=== PATIENT | male | born 1960 | race Hispanic/Latino ===

== ENCOUNTER 2019-08-01 21:01 | Emergency (ER) | payer MEDICAID ==
[2019-08-01] MEDS ORDERED: SODIUM CHLORIDE 0.9% 1000ML 1,000 ML IV ONE (21:33)
[2019-08-01 21:42] LABS: BASOPHILS % (AUTO) 0.4 % (0.0-5.0); EOSINOPHILS % (AUTO) 0.9 % (0.0-8.0); HEMATOCRIT 43.3 % (42-54); LYMPHOCYTES % (AUTO) 33.3 % (21.0-51.0); MEAN CORPUSCULAR HEMOGLOBIN 31.3 pg (27.0-33.0); MEAN CORPUSCULAR HGB CONC 35.6 g/dL (32.0-36.0); NEUTROPHILS % (AUTO) 54.2 % (40.0-77.0); PLATELET COUNT (AUTO) 258 K/uL (130-400); RED BLOOD CELL COUNT(AUTO) 4.92 MIL/uL (4.50-6.20); RED CELL DISTRIBUTION WIDTH 11.4 % (11.0-15.5); WHITE BLOOD COUNT (AUTO) 4.5 K/uL (4.8-10.8)
[2019-08-01 22:06] LABS: CREATININE 0.9 mg/dL (0.5-1.5); POTASSIUM 3.8 mmol/L (3.5-5.1)
[2019-08-01 22:11] LABS: PHENYTOIN (DILANTIN) 6.3 mcg/mL (10.0-20.0)
== END 2019-08-01 23:04 | disposition home or self-care (01) ==
LOC: EDH 21:01
DX: G40.509 Epileptic seizures related to external causes, not intractable, without status epilepticus (principal); R89.2 Abnormal level of other drugs, medicaments and biological substances in specimens from other organs, systems and tissues; I10 Essential (primary) hypertension; F41.9 Anxiety disorder, unspecified
CPT/HCPCS: 36415; 80048; 80177; 80184; 80185; 85025; 99283; J7030

== ENCOUNTER 2020-05-27 15:57 | Emergency (ER) | payer MEDICAID ==
[2020-05-27] MEDS ORDERED: LEVETIRACETAM 500 MG TABLET PO ONE (16:20)
[2020-05-27] MEDS ORDERED: LORAZEPAM 1 MG TABLET ONE (16:21)
== END 2020-05-27 16:32 | disposition home or self-care (01) ==
LOC: EDH 15:57
DX: G40.909 Epilepsy, unspecified, not intractable, without status epilepticus (principal); I10 Essential (primary) hypertension; F41.9 Anxiety disorder, unspecified

== ENCOUNTER 2022-07-15 13:55 | Emergency (ER) | payer MEDICAID ==
[~2022-07-15] VITALS: Ht 165.1 cm; Wt 86.2 kg
[2022-07-15 14:35] LABS: BASOPHILS % (AUTO) 0.7 % (0.0-5.0); EOSINOPHILS % (AUTO) 5.5 % (0.0-8.0); HEMATOCRIT 41.5 % (42-54); MEAN CORPUSCULAR HEMOGLOBIN 31.6 pg (27.0-33.0); MEAN CORPUSCULAR HGB CONC 35.7 g/dL (32.0-36.0); MEAN CORPUSCULAR VOLUME 88.7 fL (79-99); MONOCYTES % (AUTO) 9.8 % (3.0-13.0); NEUTROPHILS % (AUTO) 45.8 % (40.0-77.0); PLATELET COUNT (AUTO) 209 K/uL (130-400); RED BLOOD CELL COUNT(AUTO) 4.68 MIL/uL (4.50-6.20); RED CELL DISTRIBUTION WIDTH 11.8 % (11.0-15.5); WHITE BLOOD COUNT (AUTO) 4.4 K/uL (4.8-10.8)
[2022-07-15 14:46] LABS: INR 0.98 (0.85-1.15); PROTHROMBIN TIME 10.7 SEC (9.6-11.6)
[2022-07-15 14:47] LABS: PARTIAL THROMBOPLASTIN TIME 27.4 SEC (26.3-35.5)
[2022-07-15 14:49] LABS: CREATININE 0.8 mg/dL (0.5-1.5); POTASSIUM 3.6 mmol/L (3.5-5.1)
[2022-07-15 14:53] LABS: ALBUMIN 4.1 g/dL (3.5-5.0); TOTAL PROTEIN, SERUM 7.6 g/dL (6.0-8.3)
[2022-07-15 14:54] LABS: APPEARANCE,URINE CLEAR (CLEAR); BILIRUBIN,URINE NEGATIVE (NEGATIVE); COLOR,URINE YELLOW (YELLOW); GLUCOSE, URINE (UA) NEGATIVE (NEGATIVE); KETONES,URINE 5 mg/dL (NEGATIVE); LEUKOCYTE ESTERASE ,URINE NEGATIVE Leu/uL (NEGATIVE); NITRATE,URINE NEGATIVE (NEGATIVE); OCCULT BLOOD,URINE SMALL (NEGATIVE); PROTEIN,URINE 20 mg/dL (NEGATIVE)
[2022-07-15 14:58] LABS: BACTERIA,URINE RARE /HPF (None Seen); MUCUS,URINE MANY LPF (None Seen); WBC,URINE 0-1 /HPF (0-1)
[2022-07-15 15:01] LABS: B-TYPE NATRIURETIC PEPTIDE < 5 pg/mL (0-100)
[2022-07-15] MEDS ORDERED: PRED20TA3 PO (17:15)
[2022-07-15 18:08] VITALS: BP 133/70
== END 2022-07-15 18:13 | disposition home or self-care (01) ==
LOC: EDH 13:55
DX: G51.0 Bell's palsy (principal); I10 Essential (primary) hypertension; Z86.79 Personal history of other diseases of the circulatory system; Z98.890 Other specified postprocedural states
CPT/HCPCS: 36415; 70450; 71045; 80053; 81001; 82550; 82948; 83735; 83880; 84484; 85025; 85610; 85730; 93005

== ENCOUNTER 2023-01-13 14:15 | Observation (INO) | payer MEDICAID ==
[~2023-01-13] VITALS: Ht 165.1 cm; Wt 80.7 kg
[~2023-01-13 14:15] MED LIST: PRED20TA3 PO
[2023-01-13 14:42] LABS: BASOPHILS # (AUTO) 0.02 K/uL (0.00-0.20); BASOPHILS % (AUTO) 0.5 % (0.0-5.0); EOSINOPHILS # (AUTO) 0.11 K/uL (0.00-0.70); EOSINOPHILS % (AUTO) 2.6 % (0.0-8.0); HEMATOCRIT 42.1 % (42-54); IMMATURE GRANULOCYTE ABSOLUTE 0.02 K/uL (0-1); LYMPHOCYTES # (AUTO) 1.1 K/uL (1.0-4.8); LYMPHOCYTES % (AUTO) 26.7 % (21.0-51.0); MEAN CORPUSCULAR HEMOGLOBIN 32.5 pg (27.0-33.0); MEAN CORPUSCULAR HGB CONC 37.1 g/dL (32.0-36.0); MEAN CORPUSCULAR VOLUME 87.7 fL (79-99); MONOCYTES # (AUTO) 0.4 K/uL (0.1-1.0); MONOCYTES % (AUTO) 10.3 % (3.0-13.0); NEUTROPHILS # (AUTO) 2.5 K/uL (1.8-7.7); NEUTROPHILS % (AUTO) 59.4 % (40.0-77.0); PLATELET COUNT (AUTO) 247 K/uL (130-400); RED CELL DISTRIBUTION WIDTH 11.6 % (11.0-15.5); WHITE BLOOD COUNT (AUTO) 4.3 K/uL (4.8-10.8)
[2023-01-13 15:03] LABS: CREATININE 0.7 mg/dL (0.5-1.5); POTASSIUM 3.8 mmol/L (3.5-5.1)
[2023-01-13 15:07] LABS: BILIRUBIN,TOTAL 0.4 mg/dL (0.2-1.0); TOTAL PROTEIN, SERUM 7.5 g/dL (6.0-8.3)
[2023-01-13] MEDS ORDERED: NITROGLYCERIN 0.4 MG SL TAB SL PRN (17:30)
[2023-01-13] MEDS ORDERED: ACETAMINOPHEN 500 MG TABLET PO PRN (17:30)
[2023-01-13] MEDS ORDERED: CITA20SO2 PO (17:40)
[2023-01-13] MEDS ORDERED: LOSA25TA41 PO (17:40)
[2023-01-13] MEDS ORDERED: PHEN125O3 PO (17:40)
[2023-01-13] MEDS ORDERED: PHEN97.29 PO (17:40)
[2023-01-13] MEDS ORDERED: LEVE250T2 PO ×2 (17:40→18:12)
[2023-01-13] MEDS: MORPHINE 2 MG SYG IVP PRN (17:43)
[2023-01-13 17:45] LABS: THYROID STIMULATING HORMONE 0.87 uIU/mL (0.36-3.74)
[2023-01-13] MEDS ORDERED: PHEN50TA4 PO (18:12)
[2023-01-13 18:45] VITALS: BP 132/104; PULSE 75; RESP 18
[2023-01-13 19:15] VITALS: BP 140/90; PULSE 71; RESP 22
[2023-01-13] MEDS: FAMOTIDINE 20MG VIAL IV SCH (20:16)
[2023-01-13] MEDS: LEVETIRACETAM 250 MG TABLET PO SCH (20:17)
[2023-01-13] MEDS: PHENYTOIN SODIUM 100 MG ERCAP PO SCH (20:17)
[2023-01-13] MEDS ORDERED: PHENYTOIN 200 MG PO SCH (21:00)
[2023-01-13] MEDS ORDERED: PHENOBARBITAL 97.2 MG PO SCH (22:00)
[2023-01-13] MEDS ORDERED: HOME MEDICATION 1 EACH PO SCH ×2 (22:00→22:40)
[2023-01-13] MEDS: PHENOBARBITAL 97.2 MG PO SCH (22:40)
[2023-01-13 22:41] VITALS: O2SAT 98
[2023-01-14] VITALS (7 sets, daily range): BP systolic 117–148; BP diastolic 65–86; PULSE 67–82; RESP 18–22; O2SAT 96
[2023-01-14] MEDS: MORPHINE 2 MG SYG IVP PRN (01:12)
[2023-01-14 08:27] LABS: BASOPHILS # (AUTO) 0.02 K/uL (0.00-0.20); BASOPHILS % (AUTO) 0.5 % (0.0-5.0); EOSINOPHILS # (AUTO) 0.15 K/uL (0.00-0.70); EOSINOPHILS % (AUTO) 3.8 % (0.0-8.0); HEMATOCRIT 42.9 % (42-54); IMMATURE GRANULOCYTE ABSOLUTE 0.01 K/uL (0-1); LYMPHOCYTES # (AUTO) 1.3 K/uL (1.0-4.8); LYMPHOCYTES % (AUTO) 33.6 % (21.0-51.0); MEAN CORPUSCULAR HEMOGLOBIN 32.7 pg (27.0-33.0); MEAN CORPUSCULAR HGB CONC 36.8 g/dL (32.0-36.0); MEAN CORPUSCULAR VOLUME 88.8 fL (79-99); MONOCYTES # (AUTO) 0.4 K/uL (0.1-1.0); MONOCYTES % (AUTO) 9.6 % (3.0-13.0); NEUTROPHILS # (AUTO) 2.1 K/uL (1.8-7.7); NEUTROPHILS % (AUTO) 52.2 % (40.0-77.0); PLATELET COUNT (AUTO) 219 K/uL (130-400); RED BLOOD CELL COUNT(AUTO) 4.83 MIL/uL (4.50-6.20); RED CELL DISTRIBUTION WIDTH 11.5 % (11.0-15.5)
[2023-01-14 08:35] LABS: CREATININE 0.7 mg/dL (0.5-1.5); POTASSIUM 3.7 mmol/L (3.5-5.1)
[2023-01-14] MEDS ORDERED: KCL 20 MEQ ERTAB PO ONE (08:41)
[2023-01-14] MEDS: PHENYTOIN SODIUM 100 MG ERCAP PO SCH ×2 (08:43→20:52)
[2023-01-14] MEDS: FAMOTIDINE 20MG VIAL IV SCH ×2 (08:43→20:53)
[2023-01-14] MEDS: LOSARTAN 25 MG TABLET PO SCH (08:43)
[2023-01-14] MEDS: LEVETIRACETAM 250 MG TABLET PO SCH ×2 (08:43→20:52)
[2023-01-14] MEDS: CITALOPRAM 20 MG TABLET PO SCH (08:43)
[2023-01-14] MEDS ORDERED: CITALOPRAM HYDROBROMIDE 20 MG PO SCH (09:00)
[2023-01-14] MEDS ORDERED: PHENOBARBITAL 97.2 MG PO SCH ×2 (09:00→21:00)
[2023-01-14] MEDS ORDERED: ASPIRIN 81MG CHEW TAB PO SCH (09:00)
[2023-01-14] MEDS: NAPROXEN 250 MG TAB PO SCH ×2 (16:07→20:52)
[2023-01-14] MEDS: PHENOBARBITAL 97.2 MG PO SCH (20:54)
[2023-01-15 00:06] VITALS: BP 142/83; PULSE 67; RESP 20
[2023-01-15 04:08] VITALS: BP 121/76; PULSE 74; RESP 20
[2023-01-15 04:55] LABS: HEMATOCRIT 44.3 % (42-54); MEAN CORPUSCULAR HEMOGLOBIN 32.7 pg (27.0-33.0); MEAN CORPUSCULAR HGB CONC 36.8 g/dL (32.0-36.0); RED BLOOD CELL COUNT(AUTO) 4.98 MIL/uL (4.50-6.20); RED CELL DISTRIBUTION WIDTH 11.4 % (11.0-15.5); WHITE BLOOD COUNT (AUTO) 4.9 K/uL (4.8-10.8)
[2023-01-15 05:15] LABS: ALBUMIN 3.8 g/dL (3.5-5.0); BILIRUBIN,TOTAL 0.4 mg/dL (0.2-1.0); CREATININE 0.7 mg/dL (0.5-1.5); MAGNESIUM 1.9 mg/dL (1.80-2.40); POTASSIUM 3.9 mmol/L (3.5-5.1); TOTAL PROTEIN, SERUM 7.2 g/dL (6.0-8.3)
[2023-01-15 07:28] VITALS: BP 138/81; PULSE 66; RESP 18
[2023-01-15 08:05] VITALS: O2SAT 97
[2023-01-15] MEDS: CITALOPRAM 20 MG TABLET PO SCH (08:49)
[2023-01-15] MEDS: LEVETIRACETAM 250 MG TABLET PO SCH (08:49)
[2023-01-15] MEDS: PHENYTOIN SODIUM 100 MG ERCAP PO SCH (08:49)
[2023-01-15] MEDS: FAMOTIDINE 20MG VIAL IV SCH (08:49)
[2023-01-15] MEDS: LOSARTAN 25 MG TABLET PO SCH (08:49)
[2023-01-15] MEDS: NAPROXEN 250 MG TAB PO SCH (08:49)
[2023-01-15 11:29] VITALS: BP 132/84; PULSE 72; RESP 18
== END 2023-01-15 13:00 | disposition home or self-care (01) ==
LOC: EDH 14:15 → EDHIP 14:16 → INTOOBSV 14:16 → 2AH 18:51
PROVIDERS: ADMIT Internal Medicine; ATTEND Internal Medicine
DX: R07.89 Other chest pain (principal); R20.0 Anesthesia of skin; I10 Essential (primary) hypertension; G40.909 Epilepsy, unspecified, not intractable, without status epilepticus; F32.A Depression, unspecified; F41.8 Other specified anxiety disorders; Z86.79 Personal history of other diseases of the circulatory system; Z79.899 Other long term (current) drug therapy
CPT/HCPCS: 96374; 96375; 99285 ×2; 83036; 84443; 82550; 84484 ×3; 80053 ×2; 85025 ×2; 36415 ×3; 71045; 70450; 93005; 96376 ×2; 80048; 93306; 93356; 83735; 85027; S0028 ×4; J2270 ×2; G0378 ×20; J3490

== ENCOUNTER 2023-06-01 04:29 | Emergency (ER) | payer MEDICAID ==
[~2023-06-01] VITALS: Ht 165.1 cm; Wt 83.9 kg
[~2023-06-01 04:29] MED LIST changes: +CITA20SO2 PO; +LEVE250T2 PO; +LOSA25TA41 PO; +PHEN50TA4 PO; +PHEN97.29 PO
[2023-06-01] MEDS: DIAZEPAM 2 MG TAB PO ONE (05:54)
[2023-06-01 06:00] LABS: BASOPHILS # (AUTO) 0.03 K/uL (0.00-0.20); BASOPHILS % (AUTO) 0.8 % (0.0-5.0); EOSINOPHILS # (AUTO) 0.12 K/uL (0.00-0.70); EOSINOPHILS % (AUTO) 3.3 % (0.0-8.0); HEMATOCRIT 41.2 % (42-54); IMMATURE GRANULOCYTE ABSOLUTE 0.01 K/uL (0-1); LYMPHOCYTES # (AUTO) 1.4 K/uL (1.0-4.8); LYMPHOCYTES % (AUTO) 38.4 % (21.0-51.0); MEAN CORPUSCULAR HEMOGLOBIN 32.8 pg (27.0-33.0); MEAN CORPUSCULAR HGB CONC 36.7 g/dL (32.0-36.0); MEAN CORPUSCULAR VOLUME 89.4 fL (79-99); MONOCYTES # (AUTO) 0.5 K/uL (0.1-1.0); MONOCYTES % (AUTO) 12.5 % (3.0-13.0); NEUTROPHILS # (AUTO) 1.6 K/uL (1.8-7.7); NEUTROPHILS % (AUTO) 44.7 % (40.0-77.0); PLATELET COUNT (AUTO) 198 K/uL (130-400); RED BLOOD CELL COUNT(AUTO) 4.61 MIL/uL (4.50-6.20); RED CELL DISTRIBUTION WIDTH 11.6 % (11.0-15.5); WHITE BLOOD COUNT (AUTO) 3.7 K/uL (4.8-10.8)
[2023-06-01 06:24] LABS: CREATININE 0.7 mg/dL (0.5-1.3); POTASSIUM 3.3 mmol/L (3.5-5.1)
[2023-06-01 06:29] LABS: ALBUMIN 3.5 g/dL (3.5-5.0); BILIRUBIN,TOTAL 0.2 mg/dL (0.2-1.0); PHENYTOIN (DILANTIN) 9.3 mcg/mL (10.0-20.0); TOTAL PROTEIN, SERUM 6.8 g/dL (6.0-8.3)
[2023-06-01 06:40] VITALS: BP 129/74; PULSE 62; RESP 14; O2SAT 98
[2023-06-01 06:49] LABS: APPEARANCE,URINE CLEAR (CLEAR); BILIRUBIN,URINE NEGATIVE (NEGATIVE); COLOR,URINE COLORLESS (YELLOW); GLUCOSE, URINE (UA) NEGATIVE (NEGATIVE); KETONES,URINE NEGATIVE (NEGATIVE); LEUKOCYTE ESTERASE ,URINE NEGATIVE Leu/uL (NEGATIVE); NITRATE,URINE NEGATIVE (NEGATIVE); OCCULT BLOOD,URINE NEGATIVE (NEGATIVE); PROTEIN,URINE NEGATIVE (NEGATIVE); UROBILINOGEN,URINE 0.2 mg/dL (0.2-1.0)
[2023-06-01 06:51] LABS: AMPHET/METH SCREEN,URINE NEGATIVE (NEGATIVE); BARBITURATE SCREEN, URINE POSITIVE (NEGATIVE); BENZODIAZEPINES SCREEN,URINE NEGATIVE (NEGATIVE); CANNABINOID SCREEN,URINE NEGATIVE (NEGATIVE); COCAINE SCREEN,URINE NEGATIVE (NEGATIVE); OPIATE SCREEN,URINE NEGATIVE (NEGATIVE); PHENCYCLIDINE SCREEN,URINE NEGATIVE (NEGATIVE)
[2023-06-01] MEDS ORDERED: CITA20TA17 PO (06:57)
[2023-06-01 07:08] LABS: ADD UA MICROSCOPIC NO
== END 2023-06-01 07:12 | disposition home or self-care (01) ==
LOC: EDH 04:29
DX: G47.00 Insomnia, unspecified (principal); I10 Essential (primary) hypertension; Z79.899 Other long term (current) drug therapy; Z98.890 Other specified postprocedural states
CPT/HCPCS: 36415; 80053; 80184; 80185; 80305; 81003; 85025

== ENCOUNTER 2024-03-08 20:43 | Emergency (ER) | payer MEDICAID ==
[~2024-03-08] VITALS: Ht 165.1 cm; Wt 83.0 kg
[~2024-03-08 20:43] MED LIST changes: +CITA20TA17 PO
--- NOTE | 2024-03-08 21:03 | ERN ---
ED Note History of Present Illness Stated Complaint: SEIZURE SYMPTOMS Chief Complaint: Seizure Time Seen by MD: 20:59 Dictation: This 62-year-old gentleman with a history of a seizure disorder and hypertension presents in the emergency department with with complaints of" starts to feel like he might have a seizure." He states that a couple of days ago he missed a single dose of phenobarbital and is worried that his phenobarbital level might be low. He also ran out of his citalopram 20 mg and has been unable to get into see his doctor to get a refill. He states he has been compliant with the remainder of his seizure medications. He denies any recent fever, ENT symptoms, cough or congestion, chest pain, shortness of breath or GI symptoms. He frequently gets seizure aura's but has not had a seizure in a long time. His primary care physician Dr. Hyman usually renewed his antiepileptic drugs. He saw the neurologist many years ago and has not followed up with him as the doctor moved to [place]. He indicated that he has reported these aura symptoms that usually last for a little bit time and resolve. The patient takes Dilantin 200 mg twice daily Thursday through Thursday and 200 mg 3 times daily Thursday and Thursday. He takes phenobarbital 97.5 mg nightly. He takes Keppra 250 mg twice daily. He admits to being compliant compliant with all of these medications except the missed phenobarbital couple of doses in the past few days. During my evaluation his symptoms have completely resolved. The these symptoms of aura that he describes are mostly visual and feels funny in his body Temperature 98.1 pulse 98 respirations 20 blood pressure 171/90 with a pulse oximetry of 97% on room air He has a remote history of craniotomy for brain aneurysm and has had a seizure disorder since that time. Patient denies cigarettes alcohol and recreational drugs. He lives with his mother and his sister Allergies: Coded Allergies: No Known Drug Allergies (Verified Allergy, Unknown, 08/01/19) Home Meds Active Scripts Citalopram Hydrobromide (Celexa) 20 Mg Tablet, 20 MG PO DAILY, #30 TAB 0 Refills Prov:BUTCH WOOD MD 06/01/23 Prednisone (Prednisone) 20 Mg Tablet, 1 TAB PO AD for 16 Days, #56 TAB 0 Refills TAKE 1 TAB BY MOUTH 4 TIMES A DAY FOR 10 DAYS, THEN TAKE 1 TAB BY MOUTH 3 TIMES A DAY FOR 2 DAYS, THEN TAKE 1 TAB BY MOUTH 2 TIMES A DAY FOR 2 DAYS, THEN Take 1 tab by mouth once a day for 2 days then stop Prov:BUTCH WOOD MD 07/15/22 Reported Medications Levetiracetam (Levetiracetam) 250 Mg Tablet, 250 MG PO BID, TAB 01/13/23 Phenytoin (Phenytoin) 50 Mg Tab.chew, 200 MG PO BID, TAB.CHEW 01/13/23 Citalopram Hydrobromide (Citalopram HBr) 20 Mg/10 Ml Solution, 20 MG PO DAILY, ML 01/13/23 Phenobarbital (Phenobarbital) 97.2 Mg Tablet, 97.2 MG PO DAILY, TAB 01/13/23 Losartan Potassium (Losartan Potassium) 25 Mg Tablet, 25 MG PO DAILY, TAB 01/13/23 Past Medical History Past Medical History: Hypertension, Seizure Additional Past Medical Hx: HX OF ANEURYSM Surgical History: Other (Craniotomy for brain aneurysm), None Surgical History Other: BRAIN Social History: ETOH (Social), Lives with family RN Note Reviewed/Agreed w/PFSH: Yes Review of System Dictation Constitutional: Negative for fever,chills, and weight loss Eyes: Negative for injury, pain,redness, and discharge ENT: Negative for injury,pain or swelling Cardiovascular: Negative for chest pain, palpitations, and edema Respiratory: Negative for shortness of breath, cough, and wheezing, Abdomen/GI: Negative for abdominal pain, nausea, vomiting, diarrhea, and constipation Back: Negative for injury and pain : Negative for injury, bleeding and discharge MS/Extremity: Negative for injury and deformity Skin: Negative for rash, and discoloration Neuro: Negative for headache, weakness, numbness, tingling, and seizure . He does report feeling aura even though he has taken all his medications. He has had similar presentation in the past with a sense of seizure coming on Psych: Negative for suicide ideation, homicidal ideation, and hallucinations Reports poor sleep hygiene Initial Vital Sign VS Vital Signs Date Time Temp Pulse Resp B/P (MAP) Pulse Ox O2 Delivery O2 Flow Rate FiO2 03/08/24 20:48 98.1 98 20 171/90 97 Room Air Physical Exam Dictation General: awake, alert, NAD overweight male Head/Face: Normocephalic, atraumatic Eyes: PERRL, EOMI, vision at baseline ENT: oral cavity clear, TMs clear, no signs of infection Neck: Trachea midline, supple, no nuchal rigidity Cardiovascular: RRR, normal S1/S2, No MRGs, no JVD Respiratory: CTAB, no respiratory distress, No rales or wheezes Abdomen: Soft, non-tender, non-distended, normal bowel sounds, no guarding or rebound. Skin: Warm, dry, normal turgor, no rash MS/Extremity: Pulses equal, no cyanosis, neurovascular intact, FROM Neuro: COAx4, GCS 15, strength 5/5, CN 2-12 intact, normal cerebellar exam, normal gait, Psych: Normal behavior, mood, and affect normal Extremities-trace edema without any palpable cords, Homans sign is negative Results (Laboratory/Radiology) Laboratory/Radiology Laboratory Tests Test 03/08/24 22:27 03/08/24 22:50 White Blood Count 4.9 K/uL (4.8-10.8) Red Blood Count 4.90 MIL/uL (4.50-6.20) Hemoglobin 15.6 g/dL (14.0-18.0) Hematocrit 43.2 % (42-54) Mean Corpuscular Volume 88.2 fL (79-99) Mean Corpuscular Hemoglobin 31.8 pg (27.0-33.0) Mean Corpuscular Hemoglobin Concent 36.1 g/dL (32.0-36.0) H Red Cell Distribution Width 11.3 % (11.0-15.5) Platelet Count 231 K/uL (130-400) Mean Platelet Volume 8.8 fL (7.5-10.5) Immature Granulocyte % (Auto) 0.2 % (0-1) Neutrophils (%) (Auto) 61.1 % (40.0-77.0) Lymphocytes (%) (Auto) 24.9 % (21.0-51.0) Monocytes (%) (Auto) 10.8 % (3.0-13.0) Eosinophils (%) (Auto) 2.4 % (0.0-8.0) Basophils (%) (Auto) 0.6 % (0.0-5.0) Neutrophils # (Auto) 3.0 K/uL (1.8-7.7) Lymphocytes # (Auto) 1.2 K/uL (1.0-4.8) Monocytes # (Auto) 0.5 K/uL (0.1-1.0) Eosinophils # (Auto) 0.12 K/uL (0.00-0.70) Basophils # (Auto) 0.03 K/uL (0.00-0.20) Absolute Immature Granulocyte (auto 0.01 K/uL (0-1) Nucleated Red Blood Cells 0.0 % (0.0-0.19) Sodium Level 138 mmol/L (136-145) Potassium Level 4.1 mmol/L (3.5-5.1) Chloride Level 102 mmol/L (101-111) Carbon Dioxide Level 29 mmol/L (21-32) Blood Urea Nitrogen 13 mg/dL (7-18) Creatinine 0.8 mg/dL (0.5-1.3) Glomerular Filtration Rate Calc 99 mL/min (>90) Random Glucose 99 mg/dL (70-105) Total Calcium 8.4 mg/dL (8.5-10.1) L Urine Color LIGHT-YELLOW (YELLOW) Urine Appearance CLEAR (CLEAR) Urine pH 6.5 (5.0-8.0) Urine Specific [place] 1.016 (1.001-1.031) Urine Protein NEGATIVE mg/dL (NEGATIVE) Urine Glucose (UA) NEGATIVE mg/dL (NEGATIVE) Urine Ketones NEGATIVE mg/dL (NEGATIVE) Urine Occult Blood +- (TRACE) (NEGATIVE) H Urine Nitrate NEGATIVE (NEGATIVE) Urine Bilirubin NEGATIVE mg/dL (NEGATIVE) Urine Urobilinogen 0.2 mg/dL (0.2-1.0) Urine Leukocyte Esterase NEGATIVE Antonio/uL Urine RBC 2-5 /HPF (0-1) H Urine WBC 0-1 /HPF (0-1) Urine Bacteria None /HPF (None Seen) Labs Reviewed?: Yes ED Course ED Course Orders Procedure Category Date Status Time Cbc With Differential LAB 03/08/24 In Process 22:08 Basic Metabolic Panel LAB 03/08/24 Complete 22:08 Urinalysis Profile LAB 03/08/24 Complete 22:22 Vital Signs Date Time Temp Pulse Resp B/P (MAP) Pulse Ox O2 Delivery O2 Flow Rate FiO2 03/08/24 20:48 98.1 98 20 171/90 97 Room Air We will perform diagnostic labs, advanced imaging and administer medications according to the patient's complaint. Once the results are available, will review and personally interpreted the labs to rule out any acute life- threatening emergency the trach require immediate intervention and treatment. I will then re-evaluate the patient after treatment and diagnostic exams have return to determine whether the patient requires any further testing, can safely be discharged home or need further admission to hospital for additional treatment and evaluation. I reviewed the labs CBC and BNP 7 are completely within normal limits. I had a long discussion with the patient and explained to him the importance of compliance with the medications, maintaining sleep hygiene avoidance of any recreational drugs or alcohol. I also instructed him to follow up with his neurologist for readjustment of the medications as needed. Medical Decision Making MDM MDM: Differential diagnosis: Noncompliance with medications, poor sleep hygiene, mild dehydration, alcohol and recreational drugs, inadequate medication dosing regimen Rationale: Tests considered and ordered secondary to shared decision making include: Previous outside records reviewed: Old ER visits. Risk of complication and/or morbidity or mortality of patient management: None Medications-Per medication reconciliation Need for hospitalization: Patient does not meet criteria for hospitalization. Need for emergency major/minor surgery: No There are no social concerns with this patient. Prescription drug management Prescriptions will include symptomatic care Patient's prior external medical records from other ER visits were reviewed by me as indicated. Prior testing and results from previous visits were reviewed. Prior tests were taken into account with medical decision making and resource utilization, independent historian/historians were used to obtain complete medical history. I independently interpreted the test that were performed, results were reviewed by me and considered findings on radiology if ordered. Medical management and examination interpretation discussions were had by me with other qualified healthcare professionals as indicated for the patient's care. Problem List Problem List: (1) History of seizure disorder (2) Aura (3) History of cerebral aneurysm repair DX & DISP Disposition: Discharge Departure Impression: Primary Impression: Aura Additional Impressions: History of seizure disorder, History of cerebral aneurysm repair Condition: Stable Additional Instructions: Patient and the caregiver have been informed of all the diagnostic tests and the imaging conducted during the today's visit to the emergency room and has verbalized understanding of the results I have personally reviewed and interpreted all diagnostic exams performed here in the ER today as well as the vital signs documented by the nursing staff. The patient is now being discharged to home and should follow up with the primary care physician or the specialist as directed by the ER staff. Follow-up with primary care provider in 1 to 2 days. Take medications as directed here in the emergency room. Okay to continue home medications unless otherwise discussed during your visit in the emergency room today. Return to your nearest emergency room if symptoms worsen or if there is no improvement. Call 911 if you need immediate assistance. Take Tylenol or Motrin [id number] as needed and if no contraindications are present. Increase oral hydration. A wound culture or urine culture was ordered here in the emergency room department please follow-up with primary care provider and advise them to get repeat ports from our facility. If you had any Jose wrap/splints that were applied here, please do not remove them until you see your primary care or specialty. Referrals: MARCO A FELICIANO MD (PCP) ALIZE LEE MD Mar 08, 2024 21:03
[2024-03-08 22:35] LABS: BASOPHILS # (AUTO) 0.03 K/uL (0.00-0.20); BASOPHILS % (AUTO) 0.6 % (0.0-5.0); EOSINOPHILS # (AUTO) 0.12 K/uL (0.00-0.70); EOSINOPHILS % (AUTO) 2.4 % (0.0-8.0); HEMATOCRIT 43.2 % (42-54); IMMATURE GRANULOCYTE ABSOLUTE 0.01 K/uL (0-1); LYMPHOCYTES # (AUTO) 1.2 K/uL (1.0-4.8); LYMPHOCYTES % (AUTO) 24.9 % (21.0-51.0); MEAN CORPUSCULAR HEMOGLOBIN 31.8 pg (27.0-33.0); MEAN CORPUSCULAR HGB CONC 36.1 g/dL (32.0-36.0); MEAN CORPUSCULAR VOLUME 88.2 fL (79-99); MONOCYTES # (AUTO) 0.5 K/uL (0.1-1.0); MONOCYTES % (AUTO) 10.8 % (3.0-13.0); NEUTROPHILS % (AUTO) 61.1 % (40.0-77.0); PLATELET COUNT (AUTO) 231 K/uL (130-400); RED CELL DISTRIBUTION WIDTH 11.3 % (11.0-15.5); WHITE BLOOD COUNT (AUTO) 4.9 K/uL (4.8-10.8)
[2024-03-08 22:45] LABS: CREATININE 0.8 mg/dL (0.5-1.3); POTASSIUM 4.1 mmol/L (3.5-5.1)
[2024-03-08 23:12] LABS: APPEARANCE,URINE CLEAR (CLEAR); BILIRUBIN,URINE NEGATIVE (NEGATIVE); COLOR,URINE LIGHT-YELLOW (YELLOW); GLUCOSE, URINE (UA) NEGATIVE (NEGATIVE); KETONES,URINE NEGATIVE (NEGATIVE); LEUKOCYTE ESTERASE ,URINE NEGATIVE Leu/uL (NEGATIVE); NITRATE,URINE NEGATIVE (NEGATIVE); PH,URINE 6.5 (5.0-8.0); PROTEIN,URINE NEGATIVE (NEGATIVE); UROBILINOGEN,URINE 0.2 mg/dL (0.2-1.0)
[2024-03-08 23:14] LABS: ADD UA MICROSCOPIC YES
[2024-03-08 23:19] LABS: MUCUS,URINE RARE LPF (None Seen); WBC,URINE 0-1 /HPF (0-1)
[2024-03-08 23:34] VITALS: BP 133/74; PULSE 86; RESP 16; TEMP 98.5; O2SAT 94
== END 2024-03-09 00:06 | disposition home or self-care (01) ==
LOC: EDH 20:43
DX: G40.909 Epilepsy, unspecified, not intractable, without status epilepticus (principal); I10 Essential (primary) hypertension; Z79.899 Other long term (current) drug therapy; Z86.79 Personal history of other diseases of the circulatory system; Z98.890 Other specified postprocedural states
CPT/HCPCS: 36415; 80048; 81001; 85025; 99283

== ENCOUNTER 2025-01-21 12:09 | Emergency (ER) | payer MEDICAID ==
[~2025-01-21] VITALS: Ht 165.1 cm; Wt 81.6 kg
[~2025-01-21 12:09] MED LIST changes: +DIAZ5TAB PO
--- NOTE | 2025-01-21 12:23 | NUR ---
PT JUST NOW PLACED IN MY ED 12
--- NOTE | 2025-01-21 12:34 | ERN ---
General Chief Complaint: Other Problems Stated Complaint: ORA Time Seen by MD: 12:13 Source: patient History of Present Illness Initial Comments PATIENT IS A 64-YEAR-OLD MALE WITH A HISTORY OF SEIZURES COMING IN DUE TO MEDICATION REFILL. PER PATIENT HE WAS NOT ABLE TO GET A HOLD OF HIS PRIMARY CARE PHYSICIAN AND HE STATES THAT THIS HAS BEEN HAPPENING A LOT. HE STATES THAT HE RAN OUT OF HIS PHENOBARBITAL IN HIS HERE FOR REFILL. Allergies: Coded Allergies: No Known Drug Allergies (Verified Allergy, Unknown, 08/01/19) Home Meds Active Scripts Diazepam (Valium) 5 Mg Tablet, 1 TAB PO TIDP PRN for anxiety for 10 Days, #30 TAB 0 Refills Prov:DENISA WOODARD DO 06/17/24 Citalopram Hydrobromide (Celexa) 20 Mg Tablet, 20 MG PO DAILY, #30 TAB 0 Refills Prov:BUTCH WOOD MD 06/01/23 Prednisone (Prednisone) 20 Mg Tablet, 1 TAB PO AD for 16 Days, #56 TAB 0 Refills TAKE 1 TAB BY MOUTH 4 TIMES A DAY FOR 10 DAYS, THEN TAKE 1 TAB BY MOUTH 3 TIMES A DAY FOR 2 DAYS, THEN TAKE 1 TAB BY MOUTH 2 TIMES A DAY FOR 2 DAYS, THEN Take 1 tab by mouth once a day for 2 days then stop Prov:BUTCH WOOD MD 07/15/22 Reported Medications Levetiracetam (Levetiracetam) 250 Mg Tablet, 250 MG PO BID, TAB 01/13/23 Phenytoin (Phenytoin) 50 Mg Tab.chew, 200 MG PO BID, TAB.CHEW 01/13/23 Citalopram Hydrobromide (Citalopram HBr) 20 Mg/10 Ml Solution, 20 MG PO DAILY, ML 01/13/23 Phenobarbital (Phenobarbital) 97.2 Mg Tablet, 97.2 MG PO DAILY, TAB 01/13/23 Losartan Potassium (Losartan Potassium) 25 Mg Tablet, 25 MG PO DAILY, TAB 01/13/23 Past Medical History Past Medical History: Anxiety, Hypertension, Seizure Medical History Other: INSOMNIA Past Surgical History: Other, None Surgical History Other: BRAIN ANEURYSM Social History Social History: ETOH, Lives with family ROS Dictation CONSTITUTIONAL: NO CHILLS, NO FEVER, NO WEAKNESS, NO DIAPHORESIS, NO MALAISE. HEAD/FACE: NO SIGNS OF TRAUMA. EENT: NO EYE PAIN, NO BLURRED VISION, NO TEARING, NO DOUBLE VISION, NO EAR PAIN, NO EAR DISCHARGE, NO NOSE PAIN, NO NASAL CONGESTION, NO THROAT PAIN, NO THROAT SWELLING, NO MOUTH PAIN. RESPIRATORY: NO COUGH, NO ORTHOPNEA, NO SOB, NO STRIDOR, NO WHEEZING. CARDIOVASCULAR: NO CHEST PAIN, NO EDEMA, NO PALPITATIONS, NO SYNCOPE. GASTROINTESTINAL/ABDOMINAL: NO ABDOMINAL PAIN, NO CONSTIPATION, NO DIARRHEA, NO NAUSEA, NO VOMITING. GENITOURINARY: NO ABNORMAL DISCHARGE, NO DYSURIA, NO FREQUENT URINATION, NO HEMATURIA. NO COMPLAINTS OF PAIN IN THE GENITALS. MUSCULOSKELETAL: NO BACK PAIN, NO GOUT, NO JOINT PAIN, NO JOINT SWELLING, NO MUSCLE PAIN, NO MUSCLE STIFFNESS, NO NECK PAIN. INTEGUMENTARY: NO CHANGE IN COLOR, NO CHANGE IN HAIR/NAILS, NO DRYNESS, NO LESION, NO LUMPS, NO RASH. NEUROLOGICAL/PSYCH: NO ANXIETY, NOT DEPRESSED, NO EMOTIONAL PROBLEM, NO HEADACHE, NO NUMBNESS, NO PRE-EXISTING DEFICIT, NO HISTORY OF SEIZURES, NO TREMORS, NO WEAKNESS. HEMATOLOGIC/LYMPHATIC: NOT ANEMIC, NO HISTORY OF BLOOD CLOTS, NO APPARENT BLEEDING, NO BRUISING, GLANDS NOT SWOLLEN. ALL SYSTEMS NEGATIVE, EXCEPT NOTED. Physical Exam Physical Exam Dictation VITAL SIGNS: REVIEWED. GENERAL APPEARANCE: ALERT, ORIENTED X3, NO ACUTE DISTRESS, OBESE. HEAD AND FACE: NON-TRAUMATIC. EYES: PERRL, PINK CONJUNCTIVAS, EYELID NO TRAUMA, ANTERIOR CHAMBER CLEAR. EARS: PINNAS INTACT AND NO SIGNS OF TRAUMA OR ERYTHEMA. EAR CANALS CLEAR AND NO DISCHARGE. TMS NO ERYTHEMA. NOSE: NO DISCHARGE, NO BLEEDING. OROPHARYNX: MOUTH NORMAL, TEETH NO CARIES, TONGUE PINK. PHARYNX CLEAR, NO ERYTHEMA. TONSILS NO EXUDATES, NO ABSCESSES NOTED. MUCOUS MEMBRANE MOIST. NECK: SUPPLE, NON-TENDER, NO THYROMEGALY, NO MASSES, NO JVD, NO BRUITS. BREAST: DEFERRED. CHEST: NO TENDERNESS, NO CREPITUS, NO PARADOXICAL MOVEMENT, NO RETRACTIONS. LUNGS: CLEAR, WELL-VENTILATED, SYMMETRIC, NO RALES, NO WHEEZING, NO RHONCHI, NO STRIDOR, GOOD BREATH SOUNDS BILATERALLY. HEART: REGULAR RATE, REGULAR RHYTHM, NO MURMUR, NO GALLOPS. VASCULAR: NO PERIPHERAL EDEMA. ABDOMEN: SOFT, POSITIVE BOWEL SOUNDS, NONDISTENDED, NO GUARDING, NONTENDER, NO REBOUND, NO MASSES NO HEPATOMEGALY, NO SPLENOMEGALY, NO OVALLES'S SIGN, NO HERNIAS. RECTAL: DEFERRED. GENITAL: DEFERRED. NEUROLOGICAL: NORMAL SPEECH, GROSS MOTOR FUNCTION INTACT, GROSS SENSORY FUNC TION INTACT. MUSCULOSKELETAL: NECK NONTENDER, FULL RANGE OF MOTION, BACK NONTENDER, FULL RANGE OF MOTION. EXTREMITIES: NONTENDER, FULL RANGE OF MOTION. SKIN: COLOR PINK, DRY, NO TURGOR, NO RASH, NO LACERATIONS, NO ABRASIONS, NO CONTUSIONS. LYMPHATICS: DEFERRED. MDM MDM: DIFFERENTIAL DIAGNOSIS: HISTORY OF SEIZURE, MEDICATION REFILL RATIONALE: TESTS CONSIDERED AND ORDERED SECONDARY TO SHARED DECISION MAKING INCLUDE: PREVIOUS OUTSIDE RECORDS REVIEWED: OLD ER VISITS. RISK OF COMPLICATION AND/OR MORBIDITY OR MORTALITY OF PATIENT MANAGEMENT: NONE MEDICATIONS-PER MEDICATION RECONCILIATION NEED FOR HOSPITALIZATION: PATIENT DOES NOT MEET CRITERIA FOR HOSPITALIZATION. NEED FOR EMERGENCY MAJOR/MINOR SURGERY: NO PATIENT IS A 64-YEAR-OLD MALE COMING IN TO REFILL HIS SEIZURE MEDICATION. PER PATIENT HE IT DOES TAKE KEPPRA 250 MG B.I.D. WELL PHENOBARBITAL. HE STA BHAKTI THAT HE HAS BEEN HAVING PROBLEMS REFILLING HIS PHENOBARBITAL. PATIENT RECEIVED KEPPRA 500 IV AND WILL BE GOING HOME WITH THE INCREASED KEPPRA 500 B.I.D. FOR FIVE DAYS. I DID ADVISED HIM APPROPRIATE FOLLOW UP WITH PCP FOR REFILL OF ALL HIS MEDICATIONS. ED Course Orders Procedure Category Date Status Time Levetiracetam 500 PHA 01/21/25 Complete Mg/5 Ml Sd V (Keppra 5 12:27 Levetiracetam 500 PHA 01/21/25 Complete Mg/5 Ml Sd V (Keppra 5 12:30 Levetiracetam 500 PHA 01/21/25 Complete Mg/5 Ml Sd V (Keppra 5 12:30 Current Medications Medications (Trade) Dose Ordered Sig/Steve Route PRN Reason Start Time Stop Time Status Last Admin Dose Admin Levetiracetam (kepPRA 500 MG/5 ML SD VIAL) 500 mg ONCE IV 01/21/25 12:30 01/21/25 12:30 DC Levetiracetam (kepPRA 500 MG/5 ML SD VIAL) 500 mg ONCE ONCE IV 01/21/25 12:30 01/21/25 12:31 DC Levetiracetam (kepPRA 500 MG/5 ML SD VIAL) 500 mg STK-MED ONCE IV 01/21/25 12:27 01/21/25 12:27 DC 01/21/25 12:31 Vital Signs Date Time Temp Pulse Resp B/P (MAP) Pulse Ox O2 Delivery O2 Flow Rate FiO2 01/21/25 12:12 97.5 82 18 157/81 97 DX & DISP Disposition: Discharge Departure Impression: Primary Impression: History of seizure disorder Additional Impression: Medication refill Condition: Stable Scripts Levetiracetam (Keppra) 500 Mg Tablet 1 TAB PO BID for 7 Days, #14 TAB 0 Refills Prov: ANTOINETTE BEAVERS MD 01/21/25 Additional Instructions: FOLLOW-UP WITH PRIMARY CARE PROVIDER IN 1 TO 2 DAYS. TAKE MEDICATIONS DIRECTED HERE IN THE EMERGENCY ROOM. OKAY TO CONTINUE HOME MEDICATIONS UNLESS OTHERWISE DISCUSSED DURING YOUR VISIT IN THE EMERGENCY ROOM TODAY. RETURN TO YOUR NEAREST EMERGENCY ROOM IF SYMPTOMS WORSEN OR IF THERE IS NO IMPROVEMENT. CALL 911 IF YOU NEED IMMEDIATE ASSISTANCE. TAKE TYLENOL [id number] NEEDED AND IF NO CONTRAINDICATIONS ARE PRESENT. INCREASE ORAL HYDRATION. A WOUND CULTURE OR URINE CULTURE WAS ORDERED HERE IN THE EMERGENCY ROOM DEPARTMENT PLEASE FOLLOW-UP WITH PRIMARY CARE PROVIDER AND ADVISE THEM TO GET REPORTS FROM OUR FACILITY. IF YOU HAD ANY SAL WRAP/SPLINTS THAT WERE APPLIED HERE, PLEASE DO NOT REMOVE THEM UNTIL YOU SEE YOUR PRIMARY CARE OR SPECIALTY. REFERRALS: Referrals: MARCO A FELICIANO MD (PCP) Time of Disposition: 12:43 ANTOINETTE BEAVERS MD Jan 21, 2025 12:34
[2025-01-21] MEDS ORDERED: LEVE-43 PO (12:43)
[2025-01-21 12:52] VITALS: BP 130/77; PULSE 74; RESP 14; TEMP 98.1; O2SAT 97
== END 2025-01-21 12:54 | disposition home or self-care (01) ==
LOC: EDH 12:09
DX: G40.909 Epilepsy, unspecified, not intractable, without status epilepticus (principal); F41.9 Anxiety disorder, unspecified; I10 Essential (primary) hypertension; Z79.899 Other long term (current) drug therapy
CPT/HCPCS: 99283; 96374; J1953